=== PATIENT | male | born 1940 | race Caucasian/White ===

== ENCOUNTER 2022-02-13 02:26 | Emergency (ER) | payer MEDICARE, BC ==
[2022-02-13] MEDS ORDERED: HYDROmorphone 1 MG/ML Syringe IM ONE (02:33)
[2022-02-13 03:06] VITALS: BP 154/48; PULSE 59
== END 2022-02-13 03:35 | disposition short-term general hospital (02) ==
LOC: VM.ED 02:26
DX: S43.014A Anterior dislocation of right humerus, initial encounter (principal); E78.00 Pure hypercholesterolemia, unspecified; I10 Essential (primary) hypertension; Z88.0 Allergy status to penicillin; Z79.899 Other long term (current) drug therapy; Z79.82 Long term (current) use of aspirin; W19.XXXA Unspecified fall, initial encounter
CPT/HCPCS: 73030-RT; 96372; 99283; 99284; J1170